=== PATIENT | female | born 1965 | race Caucasian/White ===

== ENCOUNTER 2016-11-23 18:34 | Emergency (ER) | payer OTHER, MEDICAID ==
[~2016-11-23] VITALS: Ht 162.6 cm; Wt 73.2 kg
[2016-11-23 19:16] VITALS: Ht 162.6 cm; Wt 73.2 kg
[2016-11-23] MEDS ORDERED: CLON0.5T (19:52)
[2016-11-23 20:15] LABS: ADD UMIC YES; URINE BILIRUBIN (Dip) NEGATIVE (NEGATIVE); URINE BLOOD (Dip) 1+ (NEGATIVE); URINE COLOR LT. YELLOW (YELLOW); URINE GLUCOSE (Dip) NEGATIVE (NEGATIVE); URINE KETONES (Dip) TRACE (NEGATIVE); URINE LEUKOCYTE ESTERASE (Dip) TRACE (NEGATIVE); URINE NITRITE (Dip) NEGATIVE (NEGATIVE); URINE TOTAL PROTEIN (Dip) NEGATIVE (NEGATIVE); URINE UROBILINOGEN (Dip) 0.2 E.U./dL (0.1-1.0)
[2016-11-23 20:20] LABS: ADD SCAN DIFF NO
--- NOTE | 2016-11-23 20:22 | RADRPT ---
PROCEDURE: US Abdomen (right upper quadrant). CLINICAL INDICATION: Right flank pain. TECHNIQUE: Multiple real-time longitudinal and transverse images of the right upper quadrant of th e abdomen were acquired utilizing a curved array transducer. Images were reviewed on a high-resoluti on PACS workstation. COMPARISON: None FINDINGS: The liver is normal in size and echogenicity. There is no focal hepatic lesion. Color Doppler and pulsed Doppler sonography demonstrate normal a ntegrade flow in the portal vein. The gallbladder is normal with no stones or wall thickening. There is no pericholecystic fluid sebastián ection. The bile ducts are normal with the common bile duct measuring 4.2 mm in diameter. The visualized portions of the pancreas are unremarkable with obscuration of the tail of the pancrea s. No free fluid is present. The right kidney measures 13.7 cm. There is normal echogenicity of the right kidney. There is mod erate right hydronephrosis with no obstructing lesion visualized. There is a benign cyst inferiorly in the right kidney measuring 6.3 x 2.9 x 4.1 cm. IMPRESSION: 1. Moderate right hydronephrosis. Correlation with CT scan of the abdomen and pelvis without contra st should be considered. 2. Benign cyst inferiorly in the right kidney. 3. Otherwise normal right upper quadrant abdomen ultrasound. RPTAT: QQ .Darvin Peterson MD, Date Time Electronically viewed and signed by .Darvin Peterson MD, on 11/23/2016 20:21 .R/
[2016-11-23 20:27] LABS: BACTERIA,URINE MANY; SQUAMOUS EPITHELIAL CELL,UR FEW
[2016-11-23 20:27] LABS: BASOPHILS % 0.6 % (0.0-2.0); EOSINOPHILS # 0.1 10^3/ul (0.0-0.5); EOSINOPHILS % 1.9 % (0.0-7.0); HEMATOCRIT 40.4 % (37.0-47.0); HEMOGLOBIN 13.3 g/dl (12.0-16.0); LYMPHOCYTES # 2.5 10^3/ul (0.8-2.9); LYMPHOCYTES % 36.2 % (15.0-51.0); MEAN CORPUSCULAR HEMOGLOBIN 30.9 pg (29.0-33.0); MEAN CORPUSCULAR HGB CONC 32.9 g/dl (32.0-37.0); MEAN PLATELET VOLUME 9.9 fl (7.4-10.4); MONOCYTE # 0.6 10^3/ul (0.3-0.9); MONOCYTES % 8.9 % (0.0-11.0); NEUTROPHIL # 3.6 10^3/ul (1.6-7.5); NEUTROPHILS % 52.1 % (39.0-77.0); PLATELET COUNT 262 10^3/UL (140-415); RED CELL DISTRIBUTION WIDTH 11.9 % (11.5-14.5)
[2016-11-23 20:41] LABS: POTASSIUM 3.7 mmol/L (3.5-5.1)
[2016-11-23 20:43] LABS: ALBUMIN/GLOBULIN RATIO 0.97; BILIRUBIN,INDIRECT 0.3 mg/dl (0-1.1); BILIRUBIN,TOTAL 0.3 mg/dl (0.2-1.3); CREATININE 0.61 mg/dl (0.44-1.00); TOTAL PROTEIN 8.1 g/dl (6.1-8.1)
[2016-11-23 20:44] LABS: CALCIUM 9.2 mg/dl (8.4-10.2)
--- NOTE | 2016-11-23 21:59 | RADRPT ---
PROCEDURE: CT Abdomen and Pelvis without contrast CLINICAL INDICATION: Hydronephrosis seen on gallbladder ultrasound TECHNIQUE: Transaxial images were obtained through the abdomen and pelvis on a multi-slice scanner without the intravenous contrast administration. No oral contrast had previously been given. Sagit catalina and coronal re-formations were subsequently reconstructed. One or more of the following dose reduction techniques were used: - Automated exposure control. - Adjustment of the mA and/or kV according to patient size. - Use of iterative reconstruction technique. Radiation dose: CTDIvol = 9.20 mGy; DLP = 431.16 mGy-cm. COMPARISON: Comparison to previous right upper quadrant abdominal sonogram done earlier on the [facility] e date. The previous sonogram demonstrated mild right pelvocaliectasis. FINDINGS: Lung bases: The visualized lung bases appear unremarkable. Liver: The liver is enlarged but no focal lesion is identified. Gallbladder: The wall is not thickened. No radiopaque stones are identified. Bile ducts: The intra and extrahepatic bile ducts are normal in caliber. Pancreas: Appears normal with no mass or inflammation evident. Spleen: Normal in size with no focal lesion. Adrenals: Normal with no mass identified. Kidneys, ureters and bladder: There is moderate right pelvocaliectasis with a very prominent extrare nal pelvis. The proximal 2/3 of the right ureter is dilated. The distal third is not. No calcific ation is seen at the dilated portion of the ureter. There are multiple phleboliths in the pelvis an d a 3.6 mm calcification is in line with the ureter and possibly represents a distal ureterolith. T his is located approximately 1 cm superior to the right ureterovesicular junction. The left kidney and ureter appear unremarkable. The bladder appears normal. Reproductive organs: The uterus is midline and no adnexal mass is identified. Stomach and bowel: The bowel appears unremarkable with no evidence of bowel obstruction or inflammat ion. The stomach appears unremarkable. Appendix: There are no findings to suggest appendicitis. Peritoneum: No free intraperitoneal fluid or air is identified. Aorta: Normal in caliber with no aneurysmal dilatation. IVC: Unremarkable. Lymph nodes: No pathologically enlarged nodes are identified. Osseous structures: The osseous elements appear intact. IMPRESSION: 1. Moderate right pelvocaliectasis with mild dilatation of the proximal 2/3 of the right ureter. T he distal third of the ureter is nondilated. There are multiple phleboliths in the pelvis and a 3.6 mm calcification is 1 cm superior to the left ureterovesicular junction at the expected course of t he ureter is suspicious, but not definitive for a ureterolith. A post contrast study with delayed im ages may add further information. The left kidney, the left ureter and the bladder appear unremarka ble. 2. Hepatomegaly with no focal lesion. 3. No evidence of bowel obstruction or inflammation. Physician Harrison Date Time Electronically viewed and signed by Jean Purcell Physician on 11/23/2016 21:59 RH/
[2016-11-23] MEDS ORDERED: CIPR500T4 PO (22:59)
[2016-11-23] MEDS ORDERED: HYDR-906 PO (22:59)
[2016-11-23] MEDS ORDERED: TAMS-14 PO (22:59)
[2016-11-23] MEDS ORDERED: NAPR-260 PO (22:59)
[2016-11-23 23:17] VITALS: BP 128/67; PULSE 69; RESP 18; TEMP 98.2
--- NOTE | 2016-11-23 23:30 | ERD ---
ER Documentation Chief Complaint Date/Time DATE: 11/23/16 TIME: 23:20 Chief Complaint rt flank pain x 2 days with n/v HPI 51-year-old female with a past medical history of anxiety presents to the ED complaining of right flank pain that started 2 days ago. States that the pain is episodic and occurs every 2-3 hours. Describes the pain as a squeezing sensation and feels like it has progressively gotten worse. States she has a burping sensation and had 2 episodes of nonbilious nonbloody vomiting. States that she has menopause for the last 2 years. Denies any dysuria, urgency, frequency, hematuria. Denies any chest pain, shortness of breath, diarrhea, rashes. ROS All systems reviewed and are negative except as per history of present illness. Medications Home Meds Active Scripts Naproxen* (Naprosyn*) 500 Mg Tablet, 500 MG PO BID Y for PAIN AND/OR INFLAMMATION, #30 TAB Prov:KARLENE DIA-C 11/23/16 Hydrocodone/Acetaminophen ([place] 5-325 Tablet) 1 Each Tablet, 1 TAB PO Q6H Y for PAIN, #12 TAB Prov:KARLENE DIA-C 11/23/16 Tamsulosin Hcl* (Flomax*) 0.4 Mg Cap.er.24h, 0.4 MG PO BID, #30 CAP Prov:KARLENE DIA-C 11/23/16 Ciprofloxacin Hcl* (Ciprofloxacin Hcl*) 500 Mg Tablet, 500 MG PO BID for 10 Days , TAB Prov:KARLENE DIA-C 11/23/16 Reported Medications Clonazepam (Klonopin) 0.5 Mg Tablet 11/23/16 Allergies Allergies: Coded Allergies: No Known Allergy (Unverified , 11/23/16) PMhx/Soc Medical and Surgical Hx: pt denies Surgical Hx History of Surgery: No Anesthesia Reaction: No Hx Neurological Disorder: No Hx Respiratory Disorders: No Hx Cardiac Disorders: No Hx Psychiatric Problems: Yes (ANXIETY) Hx Alcohol Use: No Hx Substance Use: No Hx Tobacco Use: No Smoking Status: Never smoker Physical Exam Vitals Vital Signs Date Time Temp Pulse Resp B/P Pulse Ox O2 Delivery O2 Flow Rate FiO2 11/23/16 23:17 98.2 69 18 128/67 98 Room Air 11/23/16 19:16 97.9 82 16 155/95 98 Physical Exam Const: [id number], well-nourished. In no acute distress. Head: Atraumatic, normocephalic Eyes: Normal Conjunctiva without injection. No purulent discharge. ENT: Normal external ear, nose. Moist oropharynx without tonsillar exudates. Non -erythematous pharynx. Uvula midline. No drooling. No trismus. Neck: No cervical midline tenderness. Full range of motion. No meningismus. No cervical lymphadenopathy. No JVD. Resp: Clear to auscultation bilaterally. No wheezing, rhonchi, rales, or crackles. No accessory muscle use. No retractions. Cardio: Regular rate and rhythm. No murmurs, rubs or gallops. Abd: Soft, non distended. Normal bowel sounds. No palpable masses. No rebound tenderness. No guarding. Negative McBurney's point. Negative psoas sign. Negative obturator sign. Skin: No petechiae or rashes Back: No midline tenderness. No CVA tenderness. Ext: No cyanosis, or edema. Neur: Awake and alert. Normal gait. Normal coordination. Psych: Normal Mood and Affect Result Diagram: 11/23/16201411/23/162014 Results 24 hrs Laboratory Tests Test 11/23/16 19:55 11/23/16 20:15 Urine Bacteria MANY Urine Bilirubin NEGATIVE Urine Clarity SLIGHTLY CLOUDY Urine Color LT. YELLOW Urine Glucose NEGATIVE% Urine Hemoglobin 1+ Urine Ketones TRACE Urine Leukocyte Esterase TRACE Urine Microscopic RBC 2-5/HPF Urine Microscopic WBC 10-25/HPF Urine Nitrite NEGATIVE Urine Specific [place] 1.020 Urine Squamous Epithelial Cells FEW Urine Total Protein NEGATIVE Urine Urobilinogen 0.2 E.U./dL Urine pH 6.0 Alanine Aminotransferase (ALT/SGPT) 22IU/L Albumin 4.0g/dl Albumin/Globulin Ratio 0.97 Alkaline Phosphatase 71IU/L Anion Gap 16 Aspartate Amino Transf (AST/SGOT) 23IU/L Basophils # 0.010^3/ul Basophils % 0.6% Blood Urea Nitrogen 11mg/dl Calcium Level 9.2mg/dl Carbon Dioxide Level 31mmol/L Chloride Level 102mmol/L Creatinine 0.61mg/dl Direct Bilirubin 0.00mg/dl Eosinophils # 0.110^3/ul Eosinophils % 1.9% Globulin 4.10g/dl Glucose Level 94mg/dl Hematocrit 40.4% Hemoglobin 13.3g/dl Indirect Bilirubin 0.3mg/dl Lipase 68U/L Lymphocytes # 2.510^3/ul Lymphocytes % 36.2% Mean Corpuscular Hemoglobin 30.9pg Mean Corpuscular Hemoglobin Concent 32.9g/dl Mean Corpuscular Volume 94.0fl Mean Platelet Volume 9.9fl Monocytes # 0.610^3/ul Monocytes % 8.9% Neutrophils # 3.610^3/ul Neutrophils % 52.1% Nucleated Red Blood Cells # 0.010^3/ul Nucleated Red Blood Cells % 0.0/100WBC Platelet Count 05023^3/UL Potassium Level 3.7mmol/L Red Blood Count 4.3010^6/ul Red Cell Distribution Width 11.9% Sodium Level 145mmol/L Total Bilirubin 0.3mg/dl Total Protein 8.1g/dl White Blood Count 7.010^3/ul Procedures/MDM This is a 51-year-old female with a past medical history of anxiety presents the ED complaining of right upper quadrant abdominal pain that started 2 days ago. Patient is afebrile and nontoxic-appearing. Patient has normal vital signs. Patient was further worked up with CBC, CMP, lipase, UA, urine , gallbladder ultrasound, CT of the abdomen and pelvis without contrast. Patient denied wanting any pain medications at this time. CBC: No leukocytosis. No e/o of systemic infection. No e/o anemia. CMP: No e/o severe acidosis, alkalosis, renal failure, diabetic ketoacidosis, liver disease Lipase within normal limits. Urine: No leukocyte esterase, no nitrites, no hematuria. Urine : Negative PROCEDURE: CT Abdomen and Pelvis without contrast CLINICAL INDICATION: Hydronephrosis seen on gallbladder ultrasound TECHNIQUE: Transaxial images were obtained through the abdomen and pelvis on a multi-slice scanner without the intravenous contrast administration. No oral contrast had previously been given. Sagittal and coronal re-formations were subsequently reconstructed. One or more of the following dose reduction techniques were used: - Automated exposure control. - Adjustment of the mA and/or kV according to patient size. - Use of iterative reconstruction technique. Radiation dose: CTDIvol = 9.20 mGy; DLP = 431.16 mGy-cm. COMPARISON: Comparison to previous right upper quadrant abdominal sonogram done earlier on the same date. The previous sonogram demonstrated mild right pelvocaliectasis. FINDINGS: Lung bases: The visualized lung bases appear unremarkable. Liver: The liver is enlarged but no focal lesion is identified. Gallbladder: The wall is not thickened. No radiopaque stones are identified. Bile ducts: The intra and extrahepatic bile ducts are normal in caliber. Pancreas: Appears normal with no mass or inflammation evident. Spleen: Normal in size with no focal lesion. Adrenals: Normal with no mass identified. Kidneys, ureters and bladder: There is moderate right pelvocaliectasis with a very prominent extrarenal pelvis. The proximal 2/3 of the right ureter is dilated. The distal third is not. No calcification is seen at the dilated portion of the ureter. There are multiple phleboliths in the pelvis and a 3.6 mm calcification is in line with the ureter and possibly represents a distal ureterolith. This is located approximately 1 cm superior to the right ureterovesicular junction. The left kidney and ureter appear unremarkable. The bladder appears normal. Reproductive organs: The uterus is midline and no adnexal mass is identified. Stomach and bowel: The bowel appears unremarkable with no evidence of bowel obstruction or inflammation. The stomach appears unremarkable. Appendix: There are no findings to suggest appendicitis. Peritoneum: No free intraperitoneal fluid or air is identified. Aorta: Normal in caliber with no aneurysmal dilatation. IVC: Unremarkable. Lymph nodes: No pathologically enlarged nodes are identified. Osseous structures: The osseous elements appear intact. IMPRESSION: 1. Moderate right pelvocaliectasis with mild dilatation of the proximal 2/3 of the right ureter. The distal third of the ureter is nondilated. There are multiple phleboliths in the pelvis and a 3.6 mm calcification is 1 cm superior to the left ureterovesicular junction at the expected course of the ureter is suspicious, but not definitive for a ureterolith. A post contrast study with delayed images may add further information. The left kidney, the left ureter and the bladder appear unremarkable. 2. Hepatomegaly with no focal lesion. 3. No evidence of bowel obstruction or inflammation. Patient's pain is likely a kidney stone with trace leukocyte esterase with hematuria. Low suspicion for pancreatitis, cholecystitis, cholangitis, choledocholithiasis. A differential diagnosis considered includes but is not limited to gastritis, GERD, peptic ulcer disease, cholecystitis, choledocholithiasis, cholangitis, pancreatitis, appendicitis, bowel obstruction , ileus, volvulus, nephrolithiasis, pyelonephritis, hepatitis, perforated viscus , diverticulitis, abdominal hernia, acute abdomen, mesenteric ischemia or other emergent conditions. Discharge medications: Naproxen, Ciprofloxacin, Flomax, [place] Follow up with primary care physician in 1-2 days for referral to personal care attendant. Instructed patient to return to the ED sooner for any worsening symptoms. Patient's questions were answered. Patient understood and agreed with discharge plan. Patient discharged stable. Departure Diagnosis: Primary Impression: Nephrolithiasis Condition: Stable Patient Instructions: Kidney Stone W/ Colic Referrals: COMMUNITY CLINICS YOU HAVE RECEIVED A MEDICAL SCREENING EXAM AND THE RESULTS INDICATE THAT YOU DO NOT HAVE A CONDITION THAT REQUIRES URGENT TREATMENT IN THE EMERGENCY DEPARTMENT. FURTHER EVALUATION AND TREATMENT OF YOUR CONDITION CAN WAIT UNTIL YOU ARE SEEN IN YOUR DOCTORS OFFICE WITHIN THE NEXT 1-2 DAYS. IT IS YOUR RESPONSIBILITY TO MAKE AN APPOINTMENT FOR FOLOW-UP CARE. IF YOU HAVE A PRIMARY DOCTOR --you should call your primary doctor and schedule an appointment IF YOU DO NOT HAVE A PRIMARY DOCTOR YOU CAN CALL OUR PHYSICIAN REFERRAL HOTLINE AT IF YOU CAN NOT AFFORD TO SEE A PHYSICIAN YOU CAN CHOSE FROM THE FOLLOWING [facility] [address] [facility]. [facility] [address] [facility]. [facility] [address] [facility] [address] [facility] [facility] [address] [facility]. [facility]. [address] [facility]. [facility] YOU HAVE RECEIVED A MEDICAL SCREENING EXAM AND THE RESULTS INDICATE THAT YOU DO NOT HAVE A CONDITION THAT REQUIRES URGENT TREATMENT IN THE EMERGENCY DEPARTMENT. FURTHER EVALUATION AND TREATMENT OF YOUR CONDITION CAN WAIT UNTIL YOU ARE SEEN IN YOUR DOCTORS OFFICE WITHIN THE NEXT 1-2 DAYS. IT IS YOUR RESPONSIBILITY TO MAKE AN APPOINTMENT FOR FOLOW-UP CARE. IF YOU HAVE A PRIMARY DOCTOR --you should call your primary doctor and schedule and appointment IF YOU DO NOT HAVE A PRIMARY DOCTOR YOU CAN CALL OUR PHYSICIAN REFERRAL HOTLINE AT . IF YOU CAN NOT AFFORD TO SEE A PHYSICIAN YOU CAN CHOSE FROM THE FOLLOWING [facility]: [facility] [address] [place] [address] [facility] [address] [place] [address] [facility] + [facility] [address] [place] [address] [facility] Additional Instructions: FOLLOW UP WITH YOUR PRIMARY CARE PHYSICIAN TOMORROW. Return to this facility if you are not improving as expected. KARLENE DIA PA-C Nov 23, 2016 23:30
== END 2016-11-23 23:17 | disposition home or self-care (01) ==
LOC: FTE 18:34
DX: N20.0 Calculus of kidney (principal)
CPT/HCPCS: 36415; 74176; 76705; 80053; 81001; 81003; 83690; 85025

== ENCOUNTER 2016-12-28 14:11 | Emergency (ER) | payer OTHER ==
[~2016-12-28] VITALS: Ht 157.5 cm; Wt 78.0 kg
[~2016-12-28 14:11] MED LIST: CIPR500T4 PO; CLON0.5T; HYDR-906 PO; NAPR-260 PO; TAMS-14 PO
[2016-12-28 14:15] VITALS: Ht 157.5 cm; Wt 78.0 kg
--- NOTE | 2016-12-28 15:03 | ERD ---
ER Documentation Chief Complaint Date/Time DATE: 12/28/16 TIME: 15:01 Chief Complaint dysuria x 5 days HPI This a 51-year-old female who presents the emergency department today complaining of burning and pain and frequency with urination for the past 5 days. States that she took some pill that her daughter gave her and she is unsure what it was but it did help her. Denies any hematuria, vaginal discharge. States that she was here approximately 1 month ago for flank pain and was diagnosed with a kidney stone. Denies any flank pain currently. Denies any fevers or chills. ROS All systems reviewed and are negative except as per history of present illness. Medications Home Meds Active Scripts Ibuprofen* (Motrin*) 600 Mg Tab, 600 MG PO Q6, #30 TAB Prov:KRISTIE DE LOS SANTOS PA-C 12/28/16 Cephalexin* (Keflex*) 500 Mg Capsule, 500 MG PO QID for 7 Days, CAP Prov:KRISTIE DE LOS SANTOS PA-C 12/28/16 Naproxen* (Naprosyn*) 500 Mg Tablet, 500 MG PO BID Y for PAIN AND/OR INFLAMMATION, #30 TAB Prov:KARLENE DIA PA-C 11/23/16 Hydrocodone/Acetaminophen ([place] 5-325 Tablet) 1 Each Tablet, 1 TAB PO Q6H Y for PAIN, #12 TAB Prov:KARLENE DIA PA-C 11/23/16 Tamsulosin Hcl* (Flomax*) 0.4 Mg Cap.er.24h, 0.4 MG PO BID, #30 CAP Prov:KARLENE DIA PA-C 11/23/16 Ciprofloxacin Hcl* (Ciprofloxacin Hcl*) 500 Mg Tablet, 500 MG PO BID for 10 Days , TAB Prov:KARLENE DIA PA-C 11/23/16 Reported Medications Clonazepam (Klonopin) 0.5 Mg Tablet 11/23/16 Allergies Allergies: Coded Allergies: No Known Allergy (Unverified , 11/23/16) PMhx/Soc History of Surgery: No Anesthesia Reaction: No Hx Neurological Disorder: No Hx Respiratory Disorders: No Hx Cardiac Disorders: No Hx Psychiatric Problems: Yes (ANXIETY) Hx Alcohol Use: No Hx Substance Use: No Hx Tobacco Use: No Physical Exam Vitals Vital Signs Date Time Temp Pulse Resp B/P Pulse Ox O2 Delivery O2 Flow Rate FiO2 12/28/16 14:15 97.4 89 20 143/69 99 Physical Exam Const: NAD Head: Atraumatic Eyes: Normal Conjunctiva ENT: Normal External Ears, Nose and Mouth. Neck: Full range of motion..~ No meningismus. Resp: Clear to auscultation bilaterally Cardio: Regular rate and rhythm, no murmurs Abd: Soft, n mild suprapubic tenderness, non distended. Normal bowel sounds. No right lower quadrant pain. No left lower quadrant pain. Skin: No petechiae or rashes Back: No midline or flank tenderness no CVA tenderness. Ext: No cyanosis, or edema Neur: Awake and alert Psych: Normal Mood and Affect Results 24 hrs Laboratory Tests Test 12/28/16 15:23 Bedside Urine pH (LAB) 6.0 Bedside Urine Protein (LAB) Negative Bedside Urine Glucose (UA) Negative Bedside Urine Ketones (LAB) Negative Bedside Urine Blood Trace-lysed Bedside Urine Nitrite (LAB) Negative Bedside Urine Leukocyte Esterase (L Trace Procedures/MDM This 51-year-old female who presents the emergency department today for burning and pain with urination for the past 5 days. . I did obtain a UA UA shows trace leukocyte esterase. Negative nitrites. Patient's UA showed only trace leukocyte esterase which is exactly what her urine showed on November 23, 2016 when she presented for right flank pain. Patient was given a prescription for Cipro at that time. I will give patient a prescription for Keflex today and I did send the urine for culture as well as gonorrhea and chlamydia. Patient denied any vaginal discharge. Patient does have a history of kidney stones however she is afebrile and otherwise well-appearing at this time. She has no CVA tenderness. Low suspicion for pyelonephritis at this time. At this time the patient is stable for discharge and outpatient management. Patient should follow up with their PCP in the next 1-2 days. They may return to the emergency department sooner for any persistent or worsening of symptoms. Patient understood and agreed with the plan. KRISTIE DE LOS SANTOS PA-C Dec 28, 2016 15:03
[2016-12-28 15:24] LABS: URINE BLOOD (Dip) POC Trace-lysed (NEGATIVE)
[2016-12-28] MEDS ORDERED: CEPH-443 PO (15:30)
[2016-12-28] MEDS ORDERED: IBUP-1542 PO (15:30)
== END 2016-12-28 15:30 | disposition home or self-care (01) ==
LOC: FTE 14:11
DX: R30.0 Dysuria (principal); R10.30 Lower abdominal pain, unspecified; R35.0 Frequency of micturition
CPT/HCPCS: 81003; 87086; 87591; 99283

== ENCOUNTER 2017-02-17 10:43 | Emergency (ER) | payer OTHER ==
[~2017-02-17] VITALS: Ht 162.6 cm; Wt 74.0 kg
[~2017-02-17 10:43] MED LIST changes: +CEPH-443 PO; +IBUP-1542 PO
[2017-02-17 10:46] VITALS: Ht 162.6 cm; Wt 74.0 kg
[2017-02-17] MEDS ORDERED: KETOROLAC 30 MG INJ IV STA (11:14)
[2017-02-17] MEDS ORDERED: SOD CHLORIDE 0.9% 1,000 ML IV STA (11:14)
[2017-02-17] MEDS ORDERED: HYDROmorphONE 1 MG/ML SYG IV STA (11:14)
[2017-02-17] MEDS ORDERED: ONDANSETRON 4 MG INJ IV STA (11:14)
[2017-02-17] MEDS ORDERED: CLON0.5T4 PO (11:25)
[2017-02-17 11:28] LABS: ADD SCAN DIFF NO
[2017-02-17 11:31] LABS: BASOPHILS % 0.5 % (0.0-2.0); EOSINOPHILS % 0.6 % (0.0-7.0); HEMOGLOBIN 13.8 g/dl (12.0-16.0); LYMPHOCYTES # 1.3 10^3/ul (0.8-2.9); LYMPHOCYTES % 19.4 % (15.0-51.0); MEAN CORPUSCULAR HEMOGLOBIN 30.2 pg (29.0-33.0); MEAN CORPUSCULAR HGB CONC 33.7 g/dl (32.0-37.0); MEAN CORPUSCULAR VOLUME 89.7 fl (82.0-101.0); MEAN PLATELET VOLUME 9.9 fl (7.4-10.4); MONOCYTE # 0.3 10^3/ul (0.3-0.9); MONOCYTES % 4.8 % (0.0-11.0); NEUTROPHILS % 74.5 % (39.0-77.0); PLATELET COUNT 248 10^3/UL (140-415); RED BLOOD COUNT 4.57 10^6/ul (4.20-5.40); RED CELL DISTRIBUTION WIDTH 12.9 % (11.5-14.5); WHITE BLOOD COUNT 6.7 10^3/ul (4.8-10.8)
[2017-02-17 11:50] LABS: ADD UMIC YES; URINE BILIRUBIN (Dip) NEGATIVE (NEGATIVE); URINE BLOOD (Dip) 2+ (NEGATIVE); URINE COLOR LT. YELLOW (YELLOW); URINE GLUCOSE (Dip) NEGATIVE (NEGATIVE); URINE KETONES (Dip) TRACE (NEGATIVE); URINE LEUKOCYTE ESTERASE (Dip) NEGATIVE (NEGATIVE); URINE NITRITE (Dip) NEGATIVE (NEGATIVE); URINE TOTAL PROTEIN (Dip) TRACE (NEGATIVE); URINE UROBILINOGEN (Dip) 0.2 E.U./dL (0.1-1.0)
[2017-02-17 11:54] LABS: ALBUMIN 4.2 g/dl (3.3-4.9); ALBUMIN/GLOBULIN RATIO 1.2; BILIRUBIN,INDIRECT 0.6 mg/dl (0-1.1); BILIRUBIN,TOTAL 0.6 mg/dl (0.2-1.3); CALCIUM 9.2 mg/dl (8.4-10.2); CREATININE 0.58 mg/dl (0.44-1.00); POTASSIUM 4.2 mmol/L (3.5-5.1); TOTAL PROTEIN 7.7 g/dl (6.1-8.1)
--- NOTE | 2017-02-17 11:58 | RADRPT ---
PROCEDURE: CT Abdomen and Pelvis without contrast. CLINICAL INDICATION: Right flank pain. History of kidney stones. TECHNIQUE: Multiple contiguous axial CT images of the abdomen and pelvis were obtained without the administration of intravenous contrast. Coronal and sagittal reconstructions were also performed. CTDIvol (mGy): 11.81; Total Exam DLP (mGy-cm): 666.27. One or more of the following dose reduction techniques were utilized: - Automated exposure control. - Adjustment of the mA and/or kV according to patient size. - Use of iterative reconstruction technique. COMPARISON: 11/23/2016. FINDINGS: Limited imaging of the lower thorax demonstrates a tiny calcified granuloma of the right middle lobe . The liver and spleen are homogeneous in density. The gallbladder, pancreas and adrenal glands are u nremarkable. The kidneys are symmetric in size. Moderate right hydronephrosis is present secondary to a 6 mm ston e of the distal ureter immediately proximal to the ureterovesical junction. Minimal mild right john nephric edema is observed. The left kidney is unremarkable. The abdominal aorta is normal in caliber. There is no periaortic / retroperitoneal lymphadenopathy. The stomach and small intestines are unremarkable. Diverticulosis of the distal colon is present. The appendix is normal. There are no focal inflammatory changes of the mesentery. There is no mese nteric lymphadenopathy. There is no ascites. The bladder is collapsed. The uterus and adnexa are unremarkable. There is no free pelvic fluid. T here is no pelvic sidewall or inguinal lymphadenopathy. Very mild degenerative changes of the spine are observed. Body wall soft tissues are unremarkable. IMPRESSION: Moderate right hydronephrosis and hydroureter secondary to a 6 mm stone immediately proximal to the ureterovesical junction. Diverticulosis. No evidence of acute diverticulitis. RPTAT: HLST .Alexandra Kaur MD, Date Time Electronically viewed and signed by .Alexandra Kaur MD, MD on 02/17/2017 11:58 .T/
[2017-02-17 12:36] LABS: MUCUS,URINE MODERATE
[2017-02-17] MEDS ORDERED: IBUP-1542 PO (12:36)
[2017-02-17] MEDS ORDERED: HYDR-902 PO (12:36)
[2017-02-17] MEDS ORDERED: PHEN-538 PO (12:36)
[2017-02-17] MEDS ORDERED: ONDA4TAB14 PO (12:36)
--- NOTE | 2017-02-17 12:56 | ERD ---
ER Documentation Chief Complaint Date/Time DATE: 02/17/17 TIME: 12:53 Chief Complaint RT FLANK PAIN WITH VOMITING SINCE LAST NIGHT HPI Patient is a 52-year-old female with kidney stones who presents with "kidney stone". The patient has a history of UTI as well. She says that she is having the same pain that she had when she had a kidney stone the last time. It is right-sided flank pain and burning with urination which started at 2 AM. The pain is been constant and sharp in nature. She has had no fevers. She has had nausea and vomiting. Her primary doctor is Dr. Zavala. Upon review of old medical records this is the patient's third visit to the ER since October 2016. ROS All systems reviewed and are negative except as per history of present illness. Medications Home Meds Active Scripts Ondansetron (Ondansetron Odt) 4 Mg Tab.rapdis, 4 MG PO Q6H Y for NAUSEA AND/OR VOMITING, #30 TAB Prov:CLEVE FRAZIER MD 02/17/17 Phenazopyridine Hcl* (Pyridium*) 200 Mg Tab, 200 MG PO TID Y for URINARY PAIN, # 6 TAB Prov:CLEVE FRAZIER MD 02/17/17 Ibuprofen* (Motrin*) 600 Mg Tab, 600 MG PO Q8, #30 TAB Prov:CLEVE FRAZIER MD 02/17/17 Hydrocodone/Acetaminophen ([place] 10-325 Tablet) 1 Each Tablet, 1 TAB PO Q6H Y for PAIN, #12 TAB Prov:CLEVE FRAZIER MD 02/17/17 Reported Medications Clonazepam* (Clonazepam*) 0.5 Mg Tablet, 0.5 MG PO BID Y for ANXIETY, TAB 02/17/17 Discontinued Reported Medications Clonazepam (Klonopin) 0.5 Mg Tablet 11/23/16 Discontinued Scripts Ibuprofen* (Motrin*) 600 Mg Tab, 600 MG PO Q6, #30 TAB Prov:KRISTIE DE LOS SANTOS PA-C 12/28/16 Cephalexin* (Keflex*) 500 Mg Capsule, 500 MG PO QID for 7 Days, CAP Prov:KRISTIE DE LOS SANTOS PA-C 12/28/16 Naproxen* (Naprosyn*) 500 Mg Tablet, 500 MG PO BID Y for PAIN AND/OR INFLAMMATION, #30 TAB Prov:KARLENE DIA LAKISHA 11/23/16 Hydrocodone/Acetaminophen ([place] 5-325 Tablet) 1 Each Tablet, 1 TAB PO Q6H Y for PAIN, #12 TAB Prov:KARLENE DIA ACOSTACecileFlorencio 11/23/16 Tamsulosin Hcl* (Flomax*) 0.4 Mg Cap.er.24h, 0.4 MG PO BID, #30 CAP Prov:KARLENE DIA LAKISHA 11/23/16 Ciprofloxacin Hcl* (Ciprofloxacin Hcl*) 500 Mg Tablet, 500 MG PO BID for 10 Days , TAB Prov:KARLENE DIA ACOSTACecileFlorencio 11/23/16 Allergies Allergies: Coded Allergies: No Known Allergy (Unverified , 02/17/17) PMhx/Soc History of Surgery: No Anesthesia Reaction: No Hx Neurological Disorder: No Hx Respiratory Disorders: No Hx Cardiac Disorders: No Hx Psychiatric Problems: Yes (ANXIETY) Hx Miscellaneous Medical Probl: Yes (KIDNEY STONES) Hx Alcohol Use: No Hx Substance Use: No Hx Tobacco Use: No Smoking Status: Former smoker FmHx Family History: No diabetes Physical Exam Vitals Vital Signs Date Time Temp Pulse Resp B/P Pulse Ox O2 Delivery O2 Flow Rate FiO2 02/17/17 10:46 98.4 76 16 155/78 98 Physical Exam Const: Moderate distress secondary to pain Head: Atraumatic Eyes: Normal Conjunctiva ENT: Normal External Ears, Nose and Mouth. Neck: Full range of motion..~ No meningismus. Resp: Clear to auscultation bilaterally Cardio: Regular rate and rhythm, no murmurs Abd: Soft, non tender, non distended. Normal bowel sounds Skin: No petechiae or rashes Back: No midline or flank tenderness Ext: No cyanosis, or edema Neur: Awake and alert Psych: Normal Mood and Affect Result Diagram: 02/17/17 1112 02/17/17 1112 Results 24 hrs Laboratory Tests Test 02/17/17 11:12 White Blood Count 6.710^3/ul Red Blood Count 4.5710^6/ul Hemoglobin 13.8g/dl Hematocrit 41.0% Mean Corpuscular Volume 89.7fl Mean Corpuscular Hemoglobin 30.2pg Mean Corpuscular Hemoglobin Concent 33.7g/dl Red Cell Distribution Width 12.9% Platelet Count 52581^3/UL Mean Platelet Volume 9.9fl Neutrophils % 74.5% Lymphocytes % 19.4% Monocytes % 4.8% Eosinophils % 0.6% Basophils % 0.5% Nucleated Red Blood Cells % 0.0/100WBC Neutrophils # 5.010^3/ul Lymphocytes # 1.310^3/ul Monocytes # 0.310^3/ul Eosinophils # 0.010^3/ul Basophils # 0.010^3/ul Nucleated Red Blood Cells # 0.010^3/ul Urine Color LT. YELLOW Urine Clarity CLEAR Urine pH 6.0 Urine Specific [place] >=1.030 Urine Ketones TRACE Urine Nitrite NEGATIVE Urine Bilirubin NEGATIVE Urine Urobilinogen 0.2 E.U./dL Urine Leukocyte Esterase NEGATIVE Urine Microscopic RBC 5-10/HPF Urine Microscopic WBC 0-2/HPF Urine Mucus MODERATE Urine Hemoglobin 2+ Urine Glucose NEGATIVE% Urine Total Protein TRACE Sodium Level 138mmol/L Potassium Level 4.2mmol/L Chloride Level 105mmol/L Carbon Dioxide Level 26mmol/L Anion Gap 11 Blood Urea Nitrogen 14mg/dl Creatinine 0.58mg/dl Glucose Level 108mg/dl Calcium Level 9.2mg/dl Total Bilirubin 0.6mg/dl Direct Bilirubin 0.00mg/dl Indirect Bilirubin 0.6mg/dl Aspartate Amino Transf (AST/SGOT) 29IU/L Alanine Aminotransferase (ALT/SGPT) 29IU/L Alkaline Phosphatase 65IU/L Total Protein 7.7g/dl Albumin 4.2g/dl Globulin 3.50g/dl Albumin/Globulin Ratio 1.20 Lipase 64U/L Current Medications Medications (Trade) Dose Ordered Sig/B[place]olome Route PRN Reason Start Time Stop Time Status Last Admin Dose Admin Sodium Chloride (NS) 1,000 ml @ 1,000 mls/hr Q1H STAT IV 02/17/17 11:14 02/17/17 12:13 DC 02/17/17 11:20 Hydromorphone HCl (Dilaudid) 1 mg ONCE STAT IV 02/17/17 11:14 02/17/17 11:16 DC 02/17/17 11:20 Ondansetron HCl (Zofran Inj) 4 mg ONCE STAT IV 02/17/17 11:14 02/17/17 11:16 DC 02/17/17 11:20 Ketorolac Tromethamine (Toradol) 30 mg ONCE STAT IV 02/17/17 11:14 02/17/17 11:16 DC 02/17/17 11:20 Procedures/MDM CT scan shows 6 mm right-sided kidney stone per radiology. Patient is a 52-year-old female with kidney stones who presents with a kidney stone. There is no sign of infected kidney stone. The patient is feeling better after pain medicine and fluids. The patient will be discharged home but will need to follow-up with a urologist for lithotripsy as the stone is 6 mm in size. I will give information for Dr. Morgan but the patient can follow-up with any urologist she pleases. At this point I doubt appendicitis, cholecystitis, pancreatitis, or bowel obstruction. Departure Diagnosis: Primary Impression: Kidney stone Additional Impression: Flank pain Condition: Fair Patient Instructions: Kidney Stone W/ Colic Referrals: MARCUS MORGAN MD Additional Instructions: SPECIALIST: YOU HAVE A MEDICAL CONDITION WHICH REQUIRES YOU TO SEE A SPECIALIST WITHIN THE NEXT 1-2 DAYS. PLEASE FOLLOW UP WITH YOUR PRIMARY PHYSICIAN FOR REFFERAL.IF YOU DO NOT HAVE A PRIMARY CARE PHYSICIAN AND/OR YOU CAN NOT AFFORD TO SEE A PHYSICIAN THE FOLLOWING RESOURCES HAVE BEEN SUPPLIED TO YOU. IT IS YOUR RESPONSIBILITY TO BE SEEN BY THE SPECIALIST CLEVE FRAZIER MD February 17, 2017 12:56
[2017-02-17 13:00] VITALS: TEMP 97.9
[2017-02-17] MEDS ORDERED: ONDANSETRON (ODT) 4 MG TAB ODT STA (14:17)
[2017-02-17 14:36] VITALS: BP 137/62; PULSE 70; RESP 16
== END 2017-02-17 15:09 | disposition home or self-care (01) ==
LOC: E/R 10:43
DX: N20.0 Calculus of kidney (principal); R11.2 Nausea with vomiting, unspecified; Z87.891 Personal history of nicotine dependence
CPT/HCPCS: 36415; 74176; 80053; 81001; 83690; 85025; 96374; 96375; 99285; J1170; J1885; J2405; J7030